=== PATIENT | male | born 1995 | race Caucasian/White ===

== ENCOUNTER 2023-01-02 15:16 | Emergency (ER) | payer SELFPAY ==
[~2023-01-02] VITALS: Ht 177 cm; Wt 87.2 kg
[2023-01-02 15:22] VITALS: BP 155/96
[2023-01-02] MEDS ORDERED: PEN G BENZ (BICILLIN LA) 1.2 M UN/2 ML SYR IM STA (15:29)
--- NOTE | 2023-01-02 15:37 | ED EENT ---
History of Present Illness General Chief Complaint: Oral/Throat Problems Stated Complaint: THROAT PAIN Source: patient History of Present Illness Date Seen by Provider: Jan 02, 2023 Time Seen by Provider: 15:19 Initial Comments 27-year-old male presenting with complaints of severe throat pain x4 days. He states that 2 days ago he started taking some antibiotics from [place] but he was not entirely sure of the name. He thinks it may be a penicillin medication. He was continuing to have severe throat pain and was having trouble trying to eat and drink due to pain with swallowing. He has swelling to his tonsils and throat. He denies any exposure to ill contacts. He has had subjective fever and chills but has not taken his temperature. He reports taking some medicine for pain about 2 hours ago but was still having throat pain with swallowing. He denies history of strep throat. He states he does not have a primary care provider locally. He was able to eat a little bit today but again was having pain with pain. Timing/Duration: abrupt (4 days ago) Location: throat Prearrival Treatment: over the counter meds (Also taking an antibiotic from [place]) Modifying Factors: Worse With Other (Swallowing makes the pain worse) Associated Symptoms: No cough, No drooling, No ear drainage, No facial pain/swelling; fever (Subjective), malaise; No nasal congestion/drainage; poor fluid intake, poor solids intake; No sinus infection; sore throat; No tooth pain, No voice change Allergies and Home Medications Allergies Coded Allergies: No Known Drug Allergies (Unverified , 01/02/23) Patient Home Medication List Home Medication List Reviewed: Yes Ibuprofen (Ibuprofen) 800 Mg Tablet, 800 MG PO Q8H PRN for PAIN Prescribed by: RUDI NG on 01/02/23 8966 Review of Systems Review of Systems Constitutional: see HPI, chills, fever (Subjective) Eyes: No Symptoms Reported Ears: No Symptoms Reported Nose: no symptoms reported Mouth: no symptoms reported Throat: see HPI Respiratory: No cough Cardiovascular: no symptoms reported Gastrointestinal: no symptoms reported Musculoskeletal: no symptoms reported Skin: no symptoms reported Neurological: No Symptoms Reported Past [id number]-Ptkeym Hx Patient Social History Tobacco Use?: Yes Alcohol Use?: Yes Physical Exam Vital Signs Vital Signs - First Documented 01/02/23 15:22 Temp 36.0 Pulse 92 Resp 16 B/P (MAP) 155/96 (115) Pulse Ox 99 O2 Delivery Room Air Height, Weight, BMI Height: '" Weight: lbs. oz. kg; BMI Method: General Appearance: WD/WN, no apparent distress Eyes: bilateral eye PERRL, bilateral eye EOMI Mouth/Throat: No dental tenderness; pharynx swelling, pharynx tenderness, tonsillar exudate, tonsillar swelling; No voice changes Neck: full range of motion, supple, lymphadenopathy (R), lymphadenopathy (L) Cardiovascular: normal peripheral pulses, regular rate, rhythm Respiratory: chest non-tender, lungs clear, normal breath sounds, no respiratory distress, no accessory muscle use Gastrointestinal: normal bowel sounds, non tender, soft, no pulsatile mass Neurologic/Psychiatric: alert, oriented x 3 Skin: normal color, warm/dry; No rash Progress/Results/Core Measures Results/Orders Lab Results Laboratory Tests Test 01/02/23 15:25 Range/Units Group A Streptococcus Screen NEGATIVE NEGATIVE My Orders Orders - RUDI NG MD Rapid Strep A Screen (01/02/23 15:29) Penicillin G Benzathine Inject (Bicillin (01/02/23 15:29) Dexamethasone Injection (Decadron Inje (01/02/23 15:29) Throat Culture Strep A Confirm (01/02/23 15:25) Vital Signs/I&O 01/02/23 15:22 Temp 36.0 Pulse 92 Resp 16 B/P (MAP) 155/96 (115) Pulse Ox 99 O2 Delivery Room Air Progress Progress Note #1: Progress Note Potential diagnosis of strep pharyngitis, tonsillitis, viral pharyngitis, upper respiratory infection. Obtain rapid strep swab to check for strep throat. Administer Bicillin LA 1,200,000 units IM as his throat and tonsils are swollen with exudate. Administer dexamethasone 10 mg IM for throat pain and tonsillar swelling. Encourage fluids and hydration and advised to follow-up soft or liquid diet for 24 to 48 hours while the antibiotic kicks in. His vital signs did not show a fever as his temp was 36 even. He had a normal blood pressure and oxygen saturation was 100% on room air. He was not tachycardic to indicate severe dehydration. Progress Note #2: Time: 15:55 Progress Note Rapid strep swab came back negative for the rapid test. Again based on patient's presentation and what his tonsils look like with exudate will continue with the treatment started here with his Bicillin LA shot which would treat for strep as well as the steroid shot to try and help with pain and swelling. Will prescribe ibuprofen for continued pain and encourage liquid diet. Advised to check back with the clinic if not improving Departure Impression Primary Impression: Tonsillitis with exudate Additional Impression: Painful swallowing Disposition: HOME, SELF-CARE Condition: Stable Departure-Patient Inst. Decision time for Depature: 15:57 Referrals: [facility] Patient Instructions: Full Liquid Diet, Sore Throat, Adult ED Add. Discharge Instructions: Stop taking the antibiotic from [place] as you were given an antibiotic shot that would help to treat for strep throat. Continue to drink plenty of fluids and stay well-hydrated by following a liquid diet. Check back with the clinic at [facility] if having continued concerns. All discharge instructions reviewed with patient and/or family. Voiced understanding. Scripts Ibuprofen (Ibuprofen) 800 Mg Tablet 800 MG PO Q8H PRN for PAIN for 10 Days, #30 TAB 0 Refills Prov: RUDI NG MD 01/02/23 RUDI NG MD Jan 02, 2023 15:37
[2023-01-02] MEDS ORDERED: IBUP-1780 PO (15:58)
== END 2023-01-02 16:01 | disposition home or self-care (01) ==
LOC: ER FS 15:18
DX: J03.90 Acute tonsillitis, unspecified (principal); Z28.310 Unvaccinated for COVID-19
CPT/HCPCS: 87430; 99283